=== PATIENT | male | born 1990 | race Caucasian/White ===

== ENCOUNTER 2020-10-26 08:24 | Outpatient (CLI) | payer BC, OTHER | END 2020-10-26 23:59 | disposition home or self-care (01) | LOC: STAR 08:24 | PROVIDERS: ATTEND Surgery | DX: Z20.822 Contact with and (suspected) exposure to COVID-19 (principal); K43.9 Ventral hernia without obstruction or gangrene | CPT/HCPCS: U0003; U0005 ==

== ENCOUNTER 2020-11-01 10:59 | Day surgery (SDC) | payer BC, OTHER ==
[~2020-11-01] VITALS: Ht 188 cm; Wt 96.6 kg
[~2020-11-01 10:59] MED LIST: BUPIVACAINE/PF 0.5% ONE; EPINEPHRINE 1 MG/ML, 1ML ONE
[2020-11-01] MEDS ORDERED: no home meds per pt (11:16)
[2020-11-01 11:18] VITALS: BP 111/77
[2020-11-01] MEDS ORDERED: CHLORHEXIDINE 15 ML UDC PO ONE (11:30)
[2020-11-01] MEDS ORDERED: LACTATED RINGERS 1,000 ML IV SCH (11:30)
[2020-11-01] MEDS ORDERED: HYDROmorphone 1 MG/ML, 1ML INJ IVPush PRN (12:30)
[2020-11-01] MEDS ORDERED: LABETALOL 5MG/ML, 20ML IV PRN (12:30)
[2020-11-01] MEDS ORDERED: METHOCARBAMOL 1,000 MG in DEXTROSE 5% 100 ML IV PRN (12:30)
[2020-11-01] MEDS ORDERED: OXYcodone 5 MG/5 ML ORAL.SOL UDC PO PRN (12:30)
[2020-11-01] MEDS ORDERED: hydrALAzine 20 MG/ML, 1ML IV PRN (12:30)
[2020-11-01] MEDS ORDERED: LORazepam 2 MG/ML, 1ML IVPush PRN (12:30)
[2020-11-01] MEDS ORDERED: ONDANSETRON 2MG/ML, 2ML IVPush PRN (12:30)
[2020-11-01] MEDS ORDERED: PROMETHAZINE 25 MG/ML, 1ML IVPush PRN (12:30)
[2020-11-01] MEDS ORDERED: ACETAMINOPHEN 325 MG TABLET PO PRN (12:30)
[2020-11-01] MEDS ORDERED: MEPERIDINE/PF 25MG/0.5ML IVPush PRN (12:30)
[2020-11-01] MEDS ORDERED: PROPOFOL 10 MG/ML, 20ML ONE (12:31)
[2020-11-01] MEDS ORDERED: DEXAMETHASONE 4 MG/ML, 1ML ONE (12:31)
[2020-11-01] MEDS ORDERED: CEFAZOLIN 1,000 MG ONE (12:31)
[2020-11-01] MEDS ORDERED: ROCURONIUM 10 MG/ML,10ML ONE (12:31)
[2020-11-01] MEDS ORDERED: ONDANSETRON 2MG/ML, 2ML ONE (12:31)
[2020-11-01] MEDS ORDERED: SUCCINYLCHOLINE 20 MG/ML, 10ML ONE (12:31)
[2020-11-01] MEDS ORDERED: GLYCOPYRROLATE 0.2MG/1ML, 5ML ONE (12:31)
[2020-11-01] MEDS ORDERED: KETOROLAC 30 MG/1 ML ONE (12:31)
[2020-11-01] MEDS ORDERED: NEOSTIGMINE 1 MG/ML, 10ML ONE (12:31)
[2020-11-01] MEDS ORDERED: FENTANYL PF 250 MCG/5ML ONE (12:50)
[2020-11-01] MEDS ORDERED: MIDAZOLAM 1 MG/ML, 2ML ONE (12:50)
[2020-11-01] MEDS ORDERED: MEPERIDINE/PF 50 MG/ML ONE (13:58)
[2020-11-01] MEDS ORDERED: OXYcodone 5 MG/5 ML ORAL.SOL UDC ONE (14:24)
[2020-11-01] MEDS ORDERED: FENTANYL PF 100 MCG/2ML ONE (14:36)
[2020-11-01] MEDS: FENTANYL PF 100 MCG/2ML IV PRN ×2 (14:37→14:42)
== END 2020-11-01 16:30 | disposition home or self-care (01) ==
LOC: OUT 10:59
PROVIDERS: ATTEND Surgery
DX: K42.0 Umbilical hernia with obstruction, without gangrene (principal)
CPT/HCPCS: 49653; C1781; J0171; J2175; J2250; J3010; J7120; S2900; J0690; J1100; J1885; J2405; J2704; J2710; J0330